=== PATIENT | male | born 1970 | race Caucasian/White ===

== ENCOUNTER 2020-09-11 09:13 | Emergency (ER) | payer MEDICAID ==
[~2020-09-11] VITALS: Ht 170.2 cm; Wt 73.0 kg
[2020-09-11 09:18] VITALS: BP 133/96
[2020-09-11] MEDS ORDERED: CLOT24CR TP (09:50)
== END 2020-09-11 10:05 | disposition home or self-care (01) ==
LOC: ER 09:13
DX: B35.3 Tinea pedis (principal); F31.9 Bipolar disorder, unspecified; F41.9 Anxiety disorder, unspecified; Z59.0 Homelessness
CPT/HCPCS: 99283

== ENCOUNTER 2021-06-14 17:51 | Emergency (ER) | payer MEDICAID ==
[~2021-06-14] VITALS: Ht 170.2 cm; Wt 60.0 kg
[~2021-06-14 17:51] MED LIST: CLOT24CR TP
[2021-06-14 17:59] VITALS: BP 141/102
== END 2021-06-14 22:07 | disposition left against medical advice (07) ==
LOC: ER 17:51
DX: Z53.21 Procedure and treatment not carried out due to patient leaving prior to being seen by health care provider (principal)

== ENCOUNTER 2021-07-01 14:55 | Emergency (ER) | payer MEDICAID ==
[~2021-07-01] VITALS: Ht 170.2 cm; Wt 70.0 kg
[2021-07-01 14:56] VITALS: BP 151/106
== END 2021-07-01 15:24 | disposition left against medical advice (07) ==
LOC: ER 14:55
DX: Z53.21 Procedure and treatment not carried out due to patient leaving prior to being seen by health care provider (principal)

== ENCOUNTER 2021-07-09 21:04 | Emergency (ER) | payer MEDICAID ==
[~2021-07-09] VITALS: Ht 175.3 cm; Wt 78.0 kg
[2021-07-10 07:41] VITALS: BP 146/88
== END 2021-07-10 09:43 | disposition home or self-care (01) ==
LOC: ER 21:04
DX: Z04.89 Encounter for examination and observation for other specified reasons (principal); J45.909 Unspecified asthma, uncomplicated; I10 Essential (primary) hypertension; Z59.00 Homelessness unspecified; Z86.73 Personal history of transient ischemic attack (TIA), and cerebral infarction without residual deficits; Z86.19 Personal history of other infectious and parasitic diseases; Z99.3 Dependence on wheelchair
CPT/HCPCS: 99283